=== PATIENT | female | born 1995 | race Caucasian/White ===

== ENCOUNTER → 2025-07-06 | Outpatient (CLI) | payer OTHER | LOC: M WHC 12:58 | PROVIDERS: ATTEND Nurse Practitioner Family | DX: Z34.81 Encounter for supervision of other normal pregnancy, first trimester (principal); Z3A.14 14 weeks gestation of pregnancy ==

== ENCOUNTER → 2025-07-06 | Outpatient (CLI) | payer OTHER | LOC: M WHC 09:12 | PROVIDERS: ATTEND Nurse Practitioner Family | DX: Z53.9 Procedure and treatment not carried out, unspecified reason (principal) ==

== ENCOUNTER → 2025-07-06 | Outpatient (CLI) | payer OTHER ==
[2025-07-06 12:19] LABS: Trichomonas vaginalis (AMP) NOT DETECTED (NEGATIVE)
[2025-07-06 12:43] LABS: GC DNA AMPLIFICATION NEGATIVE (NEGATIVE)
[2025-07-06 14:22] LABS: PLATELET COUNT, AUTOMATED 196 10^3/uL (150-450)
[2025-07-06 14:56] LABS: HIV 1&2 SCREEN NEGATIVE (NEGATIVE)
[2025-07-06 15:03] LABS: HEPATITIS C VIRUS ABY INDEX 0.05 INDEX (<0.8)
== END ==
LOC: M PLALAB 09:37
PROVIDERS: ATTEND Nurse Practitioner Family
DX: Z34.80 Encounter for supervision of other normal pregnancy, unspecified trimester (principal)

== ENCOUNTER → 2025-08-09 | Outpatient (CLI) | payer OTHER | LOC: M WHC 11:38 | PROVIDERS: ATTEND Nurse Practitioner Family | DX: Z34.82 Encounter for supervision of other normal pregnancy, second trimester (principal); Z3A.19 19 weeks gestation of pregnancy ==

== ENCOUNTER → 2025-09-29 | Outpatient (CLI) | payer OTHER ==
[2025-09-29 10:35] LABS: PLATELET COUNT, AUTOMATED 166 10^3/uL (150-450)
[2025-09-29 11:05] LABS: GLUCOSE CHALLENGE TEST 1 HOUR 81 MG/DL (LESS THAN 140)
[2025-09-29 11:42] LABS: HIV 1&2 SCREEN NEGATIVE (NEGATIVE)
[2025-09-29 11:49] LABS: HEPATITIS C VIRUS ABY INDEX < 0.02 INDEX (<0.8)
[2025-09-29 12:14] LABS: Trichomonas vaginalis (AMP) NOT DETECTED (NEGATIVE)
[2025-09-29 12:37] LABS: GC DNA AMPLIFICATION NEGATIVE (NEGATIVE)
== END ==
LOC: M PLALAB 08:25
PROVIDERS: ATTEND Nurse Practitioner Family
DX: O34.211 Maternal care for low transverse scar from previous cesarean delivery (principal); Z3A.00 Weeks of gestation of pregnancy not specified

== ENCOUNTER 2025-10-06 09:10 | Outpatient (RCR) | payer OTHER | END 2025-10-16 | LOC: M PT 09:10 | PROVIDERS: ATTEND Nurse Practitioner Family | DX: O26.892 Other specified pregnancy related conditions, second trimester (principal); M54.41 Lumbago with sciatica, right side; Z3A.20 20 weeks gestation of pregnancy ==

== ENCOUNTER 2025-11-09 09:14 | Outpatient (RCR) | payer OTHER | END 2025-11-16 | LOC: M PT 09:14 | PROVIDERS: ATTEND Nurse Practitioner Family | DX: M54.41 Lumbago with sciatica, right side (principal) ==